=== PATIENT | male | born 1950 | race Caucasian/White ===

== ENCOUNTER 2016-09-04 09:44 | Inpatient (IN) | payer MEDICARE, OTHER ==
[~2016-09-04] VITALS: Ht 170.2 cm; Wt 117.9 kg
[~2016-09-04 09:44] MED LIST: ASPIRIN CHEWABL81 MG PO; ASPIRIN EC81 MG PO; AVALIDE 150-121 EACH PO; DALIRESP500 MCG PO; FOSAMAX PLUS D1 EACH PO; IPRAT-ALBUT 0.5-3 ML INH; JANUVIA 100 MG100 MG PO; LASIX40 MG PO; METFORMIN HCL1000 M1 PO; PEPCID20 MG PO; PREDNISONE 10 M10 MG PO; PREDNISONE10 MG PO; PROVENTIL HFA 61 INH INH; ROCEPHIN 2 GM AD2 GM IM; SINGULAIR10 MG PO; SYMBICORT 16010.2 GM INH; TUDORZA PRESS400 MCG INH; VERAPAMIL ER240 M1 PO
[2016-09-04 10:53] LABS: HEMOGLOBIN 13.8 gm/dl (14.0-17.5); RED BLOOD COUNT 4.85 M/UL (4.20-5.50); WHITE BLOOD COUNT 19.6 K/UL (4.5-11.0)
[2016-09-04 11:19] LABS: BUN/CREATININE RATIO 31 (0-10)
[2016-09-04] MEDS ORDERED: TRESIBA SC (16:31)
[2016-09-05 03:59] LABS: HEMOGLOBIN 12.7 gm/dl (14.0-17.5); RED BLOOD COUNT 4.62 M/UL (4.20-5.50)
[2016-09-05 04:17] LABS: BUN/CREATININE RATIO 23 (0-10)
[2016-09-06 05:30] LABS: BUN/CREATININE RATIO 23 (0-10)
[2016-09-06] MEDS ORDERED: LEVAQUIN750 MG PO (12:07)
[2016-09-06] MEDS ORDERED: MYCOSTATIN100000 UTS PO (12:10)
[2016-12-21] MEDS ORDERED: MUCINEX600 MG PO (13:56)
[2016-12-21] MEDS ORDERED: CEFUROXIME500 MG PO (13:56)
[2016-12-21] MEDS ORDERED: SPIRIVA HANDIH18 MCG INH (13:57)
[2017-01-06] MEDS ORDERED: PULMICORT0.5 MG/2 M INH (18:11)
[2017-01-06] MEDS ORDERED: MUCINEX600 MG PO (18:11)
[2017-01-06] MEDS ORDERED: MEDROL DOSEPAK 24 MG PO (18:12)
[2017-01-14] MEDS ORDERED: ATROVENT INH S2.5 ML INH (18:51)
[2017-01-16] MEDS ORDERED: DALIRESP500 MCG PO (12:23)
[2017-01-16] MEDS ORDERED: SPIRIVA HANDIH18 MCG INH (12:25)
== END 2016-09-06 12:34 | disposition home or self-care (01) | DRG 871 ==
LOC: ER1 09:44 → ZEROF 13:05 → PROG CARE 16:11 → M/S 09-05 11:43
PROVIDERS: Physician Assistant; ADMIT Internal Medicine
DX: A41.9 Sepsis, unspecified organism (principal); J18.9 Pneumonia, unspecified organism; J96.11 Chronic respiratory failure with hypoxia; Z68.41 Body mass index [BMI] 40.0-44.9, adult; E11.9 Type 2 diabetes mellitus without complications; I10 Essential (primary) hypertension; I89.0 Lymphedema, not elsewhere classified; J44.9 Chronic obstructive pulmonary disease, unspecified; E66.9 Obesity, unspecified; F17.210 Nicotine dependence, cigarettes, uncomplicated; I27.2 Other secondary pulmonary hypertension; Z86.718 Personal history of other venous thrombosis and embolism; Z90.49 Acquired absence of other specified parts of digestive tract; Z98.890 Other specified postprocedural states; Z86.010 Personal history of colon polyps; Z79.899 Other long term (current) drug therapy; Z79.82 Long term (current) use of aspirin; Z79.52 Long term (current) use of systemic steroids
CPT/HCPCS: 36415; 36600; 71010; 71020; 80048; 80053; 80202; 82550; 82553; 82803; 82962; 83036; 83605; 83735; 83874; 83880; 84484; 85025; 85027; 87040; 87070; 87205; 93005; 94640; 94664; 96365; 96366; 96375; 99285; J1650; J1956; J2543; J3370; J7030; J7040; J7050; J7070

== ENCOUNTER 2016-11-01 15:56 | Inpatient (IN) | payer MEDICARE, OTHER ==
[~2016-11-01] VITALS: Ht 170.2 cm; Wt 115.7 kg
[~2016-11-01 15:56] MED LIST changes: +LEVAQUIN750 MG PO; +MYCOSTATIN100000 UTS PO; +TRESIBA SC
[2016-11-01 16:58] LABS: HEMOGLOBIN 13.7 gm/dl (14.0-17.5); RED BLOOD COUNT 4.66 M/UL (4.20-5.50); WHITE BLOOD COUNT 13.3 K/UL (4.5-11.0)
[2016-11-01 17:17] LABS: BUN/CREATININE RATIO 23 (0-10)
[2016-11-02 08:24] LABS: HEMOGLOBIN 12.5 gm/dl (14.0-17.5); RED BLOOD COUNT 4.36 M/UL (4.20-5.50); WHITE BLOOD COUNT 12.7 K/UL (4.5-11.0)
[2016-11-02] MEDS ORDERED: NEURONTIN 100100 MG PO (08:28)
[2016-11-02] MEDS ORDERED: IBANDRONATE SO150 MG PO (08:36)
[2016-11-02] MEDS ORDERED: ALBUTEROL2.5 MG/3 M INH (08:39)
[2016-11-02] MEDS ORDERED: VENTOLIN HFA 66.7 GM INH (08:42)
[2016-11-02] MEDS ORDERED: TOUJEO SC (08:43)
[2016-11-02] MEDS ORDERED: NOVOLOG 10100 UNITS/ INJ (08:45)
[2016-11-02 08:50] LABS: BUN/CREATININE RATIO 30 (0-10)
[2016-11-03 04:40] LABS: HEMOGLOBIN 12.7 gm/dl (14.0-17.5); RED BLOOD COUNT 4.44 M/UL (4.20-5.50)
[2016-11-03 04:44] LABS: WHITE BLOOD COUNT 16.7 K/UL (4.5-11.0)
[2016-11-03 04:57] LABS: BUN/CREATININE RATIO 29 (0-10)
[2016-11-03] MEDS ORDERED: PREDNISONE10 MG PO (16:08)
[2016-11-03] MEDS ORDERED: OMNICEF 300 MG300 MG PO (16:09)
[2016-12-21] MEDS ORDERED: CEFUROXIME500 MG PO (13:56)
[2016-12-21] MEDS ORDERED: MUCINEX600 MG PO (13:56)
[2016-12-21] MEDS ORDERED: SPIRIVA HANDIH18 MCG INH (13:57)
[2017-01-06] MEDS ORDERED: MUCINEX600 MG PO (18:11)
[2017-01-06] MEDS ORDERED: PULMICORT0.5 MG/2 M INH (18:11)
[2017-01-06] MEDS ORDERED: MEDROL DOSEPAK 24 MG PO (18:12)
[2017-01-14] MEDS ORDERED: ATROVENT INH S2.5 ML INH (18:51)
[2017-01-16] MEDS ORDERED: DALIRESP500 MCG PO (12:23)
[2017-01-16] MEDS ORDERED: SPIRIVA HANDIH18 MCG INH (12:25)
== END 2016-11-03 17:38 | disposition home or self-care (01) | DRG 189 ==
LOC: ER1 15:56 → ZEROF 19:41 → M/S 11-02 07:53
PROVIDERS: Preventive Medicine Occupational Medicine; ADMIT Internal Medicine
DX: J96.21 Acute and chronic respiratory failure with hypoxia (principal); J44.1 Chronic obstructive pulmonary disease with (acute) exacerbation; E87.2 Acidosis; E11.9 Type 2 diabetes mellitus without complications; I10 Essential (primary) hypertension; I27.2 Other secondary pulmonary hypertension; I89.0 Lymphedema, not elsewhere classified; E66.9 Obesity, unspecified; Z68.39 Body mass index [BMI] 39.0-39.9, adult; D72.829 Elevated white blood cell count, unspecified; R79.89 Other specified abnormal findings of blood chemistry; Z87.891 Personal history of nicotine dependence; Z86.010 Personal history of colon polyps; Z79.82 Long term (current) use of aspirin; Z79.4 Long term (current) use of insulin; Z79.52 Long term (current) use of systemic steroids; Z79.51 Long term (current) use of inhaled steroids; Z99.81 Dependence on supplemental oxygen; Z79.899 Other long term (current) drug therapy; Z90.49 Acquired absence of other specified parts of digestive tract; Z98.890 Other specified postprocedural states; Z80.1 Family history of malignant neoplasm of trachea, bronchus and lung
CPT/HCPCS: 36415; 36600; 71010; 80048; 80053; 82550; 82553; 82803; 82962; 83605; 83874; 83880; 84439; 84443; 84484; 85025; 85027; 87040; 93005; 94640; 94664; 96365; 96372; 96375; 96376; 99285; J0696; J1650; J2930; J7050